=== PATIENT | male | born 1975 | race Two or more races ===

== ENCOUNTER 2020-05-29 09:21 | Day surgery (SDC) | payer OTHER | END 2020-05-29 17:15 | disposition home or self-care (01) | LOC: CIR.AMB 09:21 | PROVIDERS: ATTEND Orthopaedic Surgery | DX: M75.122 Complete rotator cuff tear or rupture of left shoulder, not specified as traumatic (principal); M75.22 Bicipital tendinitis, left shoulder; Z20.822 Contact with and (suspected) exposure to COVID-19 ==